=== PATIENT | male | born 1975 | race Caucasian/White ===

== ENCOUNTER 2021-03-29 08:43 | Emergency (ER) | payer SELFPAY ==
[~2021-03-29] VITALS: Ht 175.3 cm; Wt 79.4 kg
[2021-03-29 08:46] VITALS: BP 165/99
--- NOTE | 2021-03-29 08:48 | NUR ---
[facility] TO BED 11.
[2021-03-29] MEDS ORDERED: KETOROLAC 60 MG/2 ML VIAL IM ONE (09:00)
[2021-03-29 09:49] LABS: APPEARANCE,URINE CLEAR (CLEAR); BILIRUBIN,URINE NEGATIVE (NEGATIVE); BLOOD, URINE NEGATIVE (NEGATIVE); COLOR,URINE YELLOW (YELLOW); LEUKOCYTE ESTERASE ,URINE NEGATIVE (NEGATIVE); NITRITE, URINE NEGATIVE (NEGATIVE); UGLUCOSE NEGATIVE (NEGATIVE)
[2021-03-29] MEDS ORDERED: NAPR-1704 PO (10:05)
--- NOTE | 2021-03-29 10:12 | NUR ---
Patient discharged with v/s stable. Written and verbal after care instructions given and explained. Patient alert, oriented and verbalized understanding of instructions. Police with in custody. All questions addressed prior to discharge. ID band removed. Patient advised to follow up with PMD. Rx of naprosyn given. Patient educated on indication of medication including possible reaction and side effects. Opportunity to ask questions provided and answered.
[2021-03-29 10:32] VITALS: BP 157/89
== END 2021-03-29 10:12 ==
LOC: MED 08:43
DX: N50.812 Left testicular pain (principal); R10.30 Lower abdominal pain, unspecified; F12.10 Cannabis abuse, uncomplicated; F15.10 Other stimulant abuse, uncomplicated; F17.210 Nicotine dependence, cigarettes, uncomplicated
CPT/HCPCS: 36415; 76870; 81003; 87086; 87491; 96372; 99284; J1885; Q0092